=== PATIENT | female | born 1955 | race Caucasian/White ===

== ENCOUNTER 2018-07-28 06:53 | Outpatient (CLI) | payer BC ==
--- NOTE | 2018-07-28 07:39 | ULT ---
Sonogram abdomen complete HISTORY: Abdominal pain. FINDINGS: Gallbladder has a normal appearance. Common duct is 0.5 cm. Liver unremarkable without foca l mass or intrahepatic biliary dilatation. Echogenic focus at the superior pole right kidney is favored to represent an arcuate artery. No hydronephrosis. The spleen, left kidney, and visualized po rtions of the IVC and pancreas have a normal appearance. Calcifications of are apparent within the aorta. IMPRESSION: Atherosclerosis. No significant abnormalities otherwise demonstrated.
== END 2018-07-28 06:54 | disposition home or self-care (01) ==
LOC: BICULT 06:53
PROVIDERS: ATTEND Internal Medicine Gastroenterology
DX: R10.13 Epigastric pain (principal); I70.0 Atherosclerosis of aorta
CPT/HCPCS: 76700

== ENCOUNTER 2018-08-03 15:12 | Outpatient (CLI) | payer BC | END 2018-08-03 15:13 | disposition home or self-care (01) | LOC: CTENTCT 15:12 | PROVIDERS: ATTEND Otolaryngology Plastic Surgery within the Head & Neck | DX: J32.9 Chronic sinusitis, unspecified (principal) | CPT/HCPCS: 70486 ==

== ENCOUNTER → 2018-09-07 | Day surgery (SDC) | payer BC | LOC: SDC/OP 07:20 | PROVIDERS: ATTEND Surgery | DX: K21.9 Gastro-esophageal reflux disease without esophagitis (principal); K44.9 Diaphragmatic hernia without obstruction or gangrene; Z79.899 Other long term (current) drug therapy | CPT/HCPCS: 91010 ==

== ENCOUNTER 2018-10-25 12:45 | Outpatient (CLI) | payer BC ==
[2018-10-25 14:04] LABS: #Eosinphils 0.1 thou/uL (0.0-0.7); #Lymphocytes 2.2 thou/uL (1.20-3.40); #Monocytes 0.4 thou/uL (0.11-0.59); #Neutrophils 3.5 thou/uL (1.40-6.50); %Basophils 0.5 % (0.0-1.0); %Eosinophils 2.1 % (0.0-10.0); %Lymphocytes 35.1 % (21.0-51.0); %Monocytes 6.3 % (0.0-10.0); Hemoglobin 14.3 g/dL (12.0-16.0); Mean Corpuscular Hemoglobin 30.5 pg (27.0-31.0); Mean Corpuscular Volume 92.3 fL (78.0-98.0); Mean Platelet Volume 7.3 fL (7.4-10.4); Platelet Count 292 thou/uL (130-400); RBC Distribution Width 12.1 % (11.5-14.5); White Blood Cell (WBC) Count 6.3 thou/uL (4.8-10.8)
[2018-10-25 14:24] LABS: ALT (SGPT) 60 U/L (8-55); AST (SGOT) 43 U/L (5-34); Albumin 4.4 g/dL (3.4-4.8); Alkaline Phosphatase 81 U/L (40-150); Anion Gap 14 mmol/L (10-20); BUN (Urea Nitrogen) 16 mg/dL (9.8-20.1); Bilirubin, Total 0.5 mg/dL (0.2-1.2); Calc. Creatinine Clearance 0 mL/min (70-130); Calcium 9.9 mg/dL (7.8-10.44); Carbon Dioxide 25 mmol/L (23-31); Chloride 102 mmol/L (98-107); Estimated GFR-MDRD 63; Glucose 103 mg/dL (80-115); Potassium 4.3 mmol/L (3.5-5.1); Protein, Total 7.4 g/dL (6.0-8.3); Sodium 137 mmol/L (136-145)
== END 2018-10-25 12:46 | disposition home or self-care (01) ==
LOC: LABBT 12:45
PROVIDERS: ATTEND Surgery
DX: Z01.818 Encounter for other preprocedural examination (principal); K44.9 Diaphragmatic hernia without obstruction or gangrene; K21.9 Gastro-esophageal reflux disease without esophagitis
CPT/HCPCS: 80053; 85025; 93005; 93010

== ENCOUNTER 2018-10-28 05:50 | Inpatient (IN) | payer BC ==
[2018-10-28] MEDS ORDERED: ceFAZolin Sodium (SDC) 2 GM/100 ML BAG ONE (06:08)
[2018-10-28] MEDS ORDERED: Fentanyl 100 MCG/2 ML VIAL ONE ×2 (07:00)
[2018-10-28] MEDS ORDERED: Midazolam HCl 2 mg/2 ml Vial ONE (07:00)
[2018-10-28] MEDS ORDERED: Bupivacaine/Epinephrine 0.25% 30 ML VIAL ONE (07:03)
[2018-10-28] MEDS ORDERED: Hydrocodone-Acetamin 15 ML UDCUP PO PRN (09:01)
[2018-10-28] MEDS ORDERED: Morphine 4 MG/ML VIAL SLOW IVP PRN (09:01)
[2018-10-28] MEDS ORDERED: Dextrose 50% Abboject 50 ML SYRINGE SLOW IVP PRN (09:01)
[2018-10-28] MEDS ORDERED: Dextrose 5% in Water 1,000 ML IV PRN (09:01)
[2018-10-28] MEDS ORDERED: D5 1/2 NS w/20 mEq KCL 1,000 ML ONE (09:24)
[2018-10-28] MEDS ORDERED: Promethazine HCl 25 MG/ML VIAL IM PRN (09:45)
[2018-10-28] MEDS ORDERED: Promethazine HCl 25 MG/ML VIAL SLOW IVP PRN (09:45)
[2018-10-28] MEDS ORDERED: Ondansetron HCl/PF 4 MG/2 ML Vial IVP PRN (09:45)
[2018-10-28] MEDS ORDERED: Sodium Chloride 0.9% (PF) 10 ML VIAL FS PRN (09:51)
--- NOTE | 2018-10-28 10:12 | OP ---
DATE OF PROCEDURE: 10/28/2018 PREOPERATIVE DIAGNOSIS: Hiatal hernia with gastroesophageal reflux. PROCEDURE PERFORMED: Laparoscopic Charles fundoplication with esophagogastroduodenoscopy. INDICATIONS: This is a 63-year-old female with severe gastroesophageal reflux and hiatal hernia, who has developed distal esophagitis, not responding to proton pump inhibitors. FINDINGS: Moderate-size hiatal hernia. DESCRIPTION OF PROCEDURE: After informed consent was obtained, the patient was taken to the operating room and given general endotracheal anesthesia. She was placed in the supine position. Abdomen was prepped and draped in usual fashion. Local anesthesia infiltrated subcutaneously and deep. A 5-mm incision was performed approximately 8 inches above the xiphoid slightly to the left. Veress needle inserted, drop test performed. Pneumoperitoneum was created to a volume of 2 L of carbon dioxide. Utilizing a bladeless 5-mm trocar and 0-degree laparoscope, direct visual entry in abdominal cavity was performed. Pneumoperitoneum was then created to a pressure of 15 mmHg and the patient placed in steep reverse Trendelenburg position. Lico liver retractor inserted. The left lobe of liver retracted superiorly. The pylorus identified. A 5-mm port was placed just to the left of the falciform. An 8-mm port placed in upper left subcostal, and another 5-mm port placed more lateral left side. The gastrophrenic ligament was divided utilizing the LigaSure. The peritoneum was divided sharply with the LigaSure along the anterior crura and down upon the left crura and then developed along the right crura. Then, the short gastrics were taken down utilizing the LigaSure. The esophagus was reduced and held in place with a [place] drain to further define the hiatus. A 40-Haitian bougie was inserted and a posterior crural plication performed with interrupted 0 Ethibond in the Sew-Right and Ti-Knot device. Then, the fundus was grasped and brought to the right side of the esophagus and the fundoplication was performed between the left fundus, esophagus, and right fundus, utilizing interrupted 2-0 silk sutures tied intracorporeally. This was also done over the bougie. Then, intraoperative endoscopy was performed, the bougie removed. The video endoscope was inserted under direct vision and advanced into the stomach. The pylorus identified. The stomach insufflated with air. There was quite a bit of residual, kind of clear fluid in her stomach that had to be aspirated. The scope was retroflexed. The wrap looked good. No torsion. The stomach decompressed, the scope removed. At this point, the body of the stomach was tethered to the anterior abdominal wall with a 2-0 silk suture to maintain reduction of the hiatal hernia, and then Tisseel tissue sealant was applied circumferentially around the hiatal opening. The trocars and retractors were removed. Hemostasis assured and the skin closed with interrupted 4-0 Rapide. Dermabond applied. The patient tolerated the procedure well, transferred to Recovery in good condition. Sponge and needle count verified correct x2. Job ID: [id number]
[2018-10-28] MEDS ORDERED: Pantoprazole 40 MG VIAL IVP SCH (10:15)
[2018-10-28] MEDS: D5 1/2 NS w/20 mEq KCL 1,000 ML IV SCH ×3 (10:16→20:23)
[2018-10-28] MEDS: Morphine 2 MG/ML SYRINGE SLOW IVP PRN ×2 (10:33→20:23)
[2018-10-28] MEDS ORDERED: Rocuronium Bromide 10 MG/ML (10ML VIAL) ONE (12:06)
[2018-10-28] MEDS ORDERED: Ketorolac Tromethamine 30 MG/ML VIAL ONE (12:06)
[2018-10-28] MEDS ORDERED: Lidocaine 1% PF 5 ML VIAL ONE (12:06)
[2018-10-28] MEDS ORDERED: ePHEDrine 50 MG/ML VIAL ONE (12:06)
[2018-10-28] MEDS ORDERED: PROPOFOL 200 MG/20 ML VIAL ONE (12:06)
[2018-10-28] MEDS ORDERED: Glycopyrrolate 0.2 MG/ML 5 ML SYRINGE ONE (12:06)
[2018-10-28] MEDS ORDERED: Ondansetron PF 4 MG/2 ML Vial ONE (12:06)
--- NOTE | 2018-10-28 12:10 | HP ---
CHIEF COMPLAINT: Hiatal hernia with reflux. HISTORY OF PRESENT ILLNESS: This is a 63-year-old female with a 20 plus year history of reflux, progressive despite PPIs and Carafate. EGD shows distal esophagitis. She sleeps in a recliner, solid food dysphagia, required dilatation. Ultrasound of the gallbladder normal. Her manometry was normal. PAST MEDICAL HISTORY: She has had bone spurs. PAST SURGICAL HISTORY: Hysterectomy for endometriosis. She has had an endoscopic sinus surgeries, septoplasty. MEDICATIONS: EpiPen. FAMILY HISTORY: Father of unknown reasons. Mother is alive with hypertension. SOCIAL HISTORY: She is single. No tobacco. Rare alcohol. ALLERGIES: NO KNOWN DRUG ALLERGIES. PHYSICAL EXAMINATION: VITAL SIGNS: Height 64, weight 139, and body mass index 24. GENERAL: Well-developed, well-nourished female, in no apparent distress. HEENT: No jaundice. LUNGS: Clear. HEART: Regular rate and rhythm. ABDOMEN: Soft and nontender. Good bowel sounds. No masses or hernias. EXTREMITIES: Good pulses. No pedal edema. ASSESSMENT: Hiatal hernia with reflux. PLAN: Laparoscopic hiatal hernia repair with Charles fundoplication and EGD. CONSENT: I have discussed the planned procedure as well as risk of bleeding, infection, injury to esophagus, spleen, loops of bowel, and need to open, she understands and gives informed consent. Job ID: [id number]
[2018-10-28] MEDS: Promethazine HCl 25 MG/ML VIAL IM PRN (13:17)
[2018-10-28] MEDS ORDERED: CEFAZOLIN 2 GM in Premix Bag 1 BAG IVPB SCH (16:00)
[2018-10-28] MEDS: Ketorolac Tromethamine 30 MG/ML VIAL IVP SCH ×2 (17:02→20:24)
[2018-10-28] MEDS: CEFAZOLIN 2 GM in Sodium Chloride 0.9% 100 ML IVPB SCH (19:31)
[2018-10-28] MEDS: Ondansetron PF 4 MG/2 ML Vial IVP PRN (20:24)
[2018-10-28] MEDS: hydrALAZINE 20 MG/ML VIAL SLOW IVP PRN (23:46)
[2018-10-28] MEDS ORDERED: CEFAZOLIN 2 GM in Sodium Chloride 0.9% 100 ML IVPB SCH (23:59)
[2018-10-29] MEDS: CEFAZOLIN 2 GM in Sodium Chloride 0.9% 100 ML IVPB SCH (02:16)
[2018-10-29] MEDS: Ondansetron PF 4 MG/2 ML Vial IVP PRN ×3 (02:16→23:45)
[2018-10-29] MEDS: Ketorolac Tromethamine 30 MG/ML VIAL IVP SCH ×4 (02:16→20:09)
[2018-10-29] MEDS: Morphine 2 MG/ML SYRINGE SLOW IVP PRN ×2 (03:10→23:45)
[2018-10-29] MEDS ORDERED: Enoxaparin Sodium 40 MG/0.4 ML SYRINGE SC SCH (06:00)
[2018-10-29 06:02] LABS: #Lymphocytes 0.9 thou/uL (1.20-3.40); #Monocytes 0.3 thou/uL (0.11-0.59); #Neutrophils 8.2 thou/uL (1.40-6.50); %Basophils 0.5 % (0.0-1.0); %Eosinophils 0.2 % (0.0-10.0); %Lymphocytes 9.3 % (21.0-51.0); %Monocytes 2.9 % (0.0-10.0); %Neutrophils 87.1 % (42.0-75.0); Hemoglobin 14.1 g/dL (12.0-16.0); Mean Corpuscular HGB CONC 34.2 g/dL (32.0-36.0); Mean Corpuscular Hemoglobin 30.6 pg (27.0-31.0); Mean Corpuscular Volume 89.6 fL (78.0-98.0); Mean Platelet Volume 7.1 fL (7.4-10.4); Platelet Count 279 thou/uL (130-400); RBC Distribution Width 11.9 % (11.5-14.5); Red Blood Cell (RBC) Count 4.62 mill/uL (4.20-5.40); White Blood Cell (WBC) Count 9.4 thou/uL (4.8-10.8)
[2018-10-29] MEDS: Promethazine HCl 25 MG/ML VIAL IM PRN ×4 (06:03→22:39)
[2018-10-29 06:22] LABS: Anion Gap 12 mmol/L (10-20); BUN (Urea Nitrogen) 7 mg/dL (9.8-20.1); Calc. Creatinine Clearance 66 mL/min (70-130); Calcium 9.2 mg/dL (7.8-10.44); Carbon Dioxide 26 mmol/L (23-31); Chloride 94 mmol/L (98-107); Estimated GFR-MDRD 69; Glucose 189 mg/dL (80-115); Potassium 3.5 mmol/L (3.5-5.1); Sodium 128 mmol/L (136-145)
--- NOTE | 2018-10-29 09:12 | RAD ---
XR UGI Single Contrast No Air HISTORY: Recent hiatal hernia repair surgery Procedure: Single sip swallow study was performed with administration of 15 mL contrast under fluoros copy. FINDINGS: Contrast slowly traverses the gastroesophageal junction. No leak or evidence of high-grade obstructi on. There is a thin stream of contrast passing through the esophagus into the stomach likely due to edema at the surgical site. IMPRESSION: Findings are suggestive of partial obstruction likely due to postoperative edema. Discussed over the telephone with Dr. Goddard at 8:58 AM.
[2018-10-29] MEDS: D5 1/2 NS w/20 mEq KCL 1,000 ML IV SCH (09:56)
[2018-10-29] MEDS: Pantoprazole 40 MG VIAL IVP SCH (09:59)
[2018-10-29] MEDS: diphenhydrAMINE 50 MG/ML VIAL IVP PRN (10:07)
[2018-10-29] MEDS ORDERED: GASTROGRAFIN 30 ML BOT ONE (11:52)
--- NOTE | 2018-10-29 12:09 | PRG ---
DATE OF SERVICE: 10/29/2018 SUBJECTIVE: The patient had a lot of dry heaves, feeling nauseated, not having ability to take much p.o. Pain is okay. OBJECTIVE: VITAL SIGNS: Her temperature 97.8, pulse 76, and blood pressure 160/89. GENERAL: She is awake and alert. ABDOMEN: The incisions are healing well. There is no evidence of infection. LABORATORY DATA: White count is 9.4, hemoglobin and hematocrit of 14 and 41, and platelet count 279. Electrolytes are fine. Her swallow study showed a lot of edema at the EG junction. There was a thin stream of contrast that went into the stomach. No leak. ASSESSMENT: Postoperative edema, status post Charles fundoplication. PLAN: Continue IV fluids, minimal p.o. As swelling goes down and she is able to take more p.o., she will be able to be discharged. Job ID: [id number]
[2018-10-29] MEDS: Sodium Chloride 0.9% 1,000 ML IV SCH ×2 (15:06→20:08)
[2018-10-29] MEDS: hydrALAZINE 20 MG/ML VIAL SLOW IVP PRN (17:41)
[2018-10-30] MEDS ORDERED: Fluticasone Propionate Nasal Spray 16 gm Bottle NASAL SCH (00:45)
[2018-10-30] MEDS: Ketorolac Tromethamine 30 MG/ML VIAL IVP SCH ×4 (03:50→20:40)
[2018-10-30 07:31] LABS: Anion Gap 11 mmol/L (10-20); BUN (Urea Nitrogen) 8 mg/dL (9.8-20.1); Calc. Creatinine Clearance 71 mL/min (70-130); Calcium 9.5 mg/dL (7.8-10.44); Carbon Dioxide 25 mmol/L (23-31); Chloride 96 mmol/L (98-107); Estimated GFR-MDRD 75; Glucose 89 mg/dL (80-115); Magnesium 1.7 mg/dL (1.6-2.6); Potassium 3.1 mmol/L (3.5-5.1); Sodium 129 mmol/L (136-145)
[2018-10-30] MEDS: Enoxaparin Sodium 40 MG/0.4 ML SYRINGE SC SCH (10:55)
[2018-10-30] MEDS: Pantoprazole 40 MG VIAL IVP SCH (10:56)
[2018-10-30] MEDS: Fluticasone Propionate Nasal Spray 16 gm Bottle NASAL SCH (11:03)
[2018-10-30] MEDS: Ondansetron PF 4 MG/2 ML Vial IVP PRN (15:01)
[2018-10-30] MEDS: Sodium Chloride 0.9% 1,000 ML IV SCH (15:11)
--- NOTE | 2018-10-30 16:06 | PRG ---
DATE OF SERVICE: 10/30/2018 SUBJECTIVE: Ms. Ann is a 63-year-old woman, who is postoperative day #2, status post laparoscopic Charles fundoplication. The patient is currently unable to take in even liquids due to dysphagia. Upper GI, which was performed yesterday revealed likely edema in the operative site. The patient is therefore on bowel rest. She reports feeling quite weak due to not having had enough calories over the last few days. She however, reports adequate pain control. Urinary output has been adequate. PHYSICAL EXAMINATION: VITAL SIGNS: Include blood pressure 148/83, pulse 72, respiratory rate is 15, temperature 98.2 degrees Fahrenheit, and oxygen saturation 98% on room air. HEART: Reveals regular rate and rhythm. LUNGS: Clear to auscultation bilaterally. Breathing, regular and nonlabored. ABDOMEN: Soft, nontender, and nondistended. EXTREMITIES: Reveal 2+ radial and pedal pulses bilaterally. No ankle edema is present. NEUROLOGIC: Reveals no focal deficits present. LABORATORY DATA: Laboratory findings includes metabolic profile; sodium 129, potassium 3.1, chloride is 96, bicarb is 25, BUN is 8, creatinine 0.77, glucose is 89, and magnesium 1.7. IMPRESSION: 1. Postoperative day#2 status post laparoscopic Charles fundoplication. 2. Acute hyponatremia. 3. Acute hypokalemia. 4. Acute hypomagnesemia. PLAN: 1. Continue bowel rest. We will initiate peripheral parenteral nutrition until return of ability to swallow, which I suspect will happen in a couple of days. 2. Increase activity. Above findings and plan have been discussed with the patient, who indicates understanding of information given. I have answered her questions. Job ID: [id number]
[2018-10-30] MEDS: D5W-AA 4.25% with LYTES 1,000 ML IV SCH (17:24)
[2018-10-30] MEDS: Promethazine HCl 25 MG/ML VIAL IM PRN (22:04)
--- NOTE | 2018-10-31 01:47 | PRG ---
DATE OF SERVICE: 10/31/2018 SUBJECTIVE: The patient remains on the surgical floor. She is postop day #2, status post laparoscopic Charles fundoplication. She is currently on full bowel rest due to her dysphagia and some edema noted on her upper GI. Otherwise, the patient states that her pain is controlled. She is passing gas, and she is ambulating without difficulty. As a matter of fact, the patient pointed out that she has made 24 laps around the [place] today. PHYSICAL EXAMINATION: VITAL SIGNS: Stable. The patient is afebrile. GENERAL: The patient is resting comfortably in bed. She is in no discomfort. ABDOMEN: Soft, nondistended with hypoactive bowel sounds. ASSESSMENT: Status post laparoscopic Charles fundoplication, postop day 2. PLAN: Plan will be to continue bowel rest. The Day Team has started her on peripheral parenteral nutrition. Otherwise, we will continue all her supportive care and await for her ability to take p.o. Job ID: [id number]
[2018-10-31] MEDS: Ketorolac Tromethamine 30 MG/ML VIAL IVP SCH ×4 (02:38→20:15)
[2018-10-31] MEDS: D5W-AA 4.25% with LYTES 1,000 ML IV SCH ×3 (02:44→20:11)
[2018-10-31] MEDS: Sodium Chloride 0.9% 1,000 ML IV SCH ×4 (02:44→20:11)
[2018-10-31] MEDS: Morphine 2 MG/ML SYRINGE SLOW IVP PRN (03:02)
[2018-10-31 07:25] LABS: Anion Gap 11 mmol/L (10-20); BUN (Urea Nitrogen) 18 mg/dL (9.8-20.1); Calc. Creatinine Clearance 65 mL/min (70-130); Calcium 9.2 mg/dL (7.8-10.44); Carbon Dioxide 25 mmol/L (23-31); Chloride 103 mmol/L (98-107); Estimated GFR-MDRD 67; Glucose 85 mg/dL (80-115); Potassium 3.2 mmol/L (3.5-5.1); Sodium 136 mmol/L (136-145)
[2018-10-31] MEDS: Fluticasone Propionate Nasal Spray 16 gm Bottle NASAL SCH (09:44)
[2018-10-31] MEDS: Enoxaparin Sodium 40 MG/0.4 ML SYRINGE SC SCH (09:45)
[2018-10-31] MEDS: Pantoprazole 40 MG VIAL IVP SCH (09:47)
--- NOTE | 2018-10-31 18:11 | PRG ---
DATE OF SERVICE: 10/31/2018 SUBJECTIVE: Ms. Ann is a 63-year-old woman, who is postoperative day #3 status post laparoscopic Charles fundoplication. She still complains of dysphagia even to liquids. She is also complaining of intermittent painful swallowing of on spit. She has no fevers or chills. She has no dyspnea or syncope. The patient ambulates briskly and very frequently. She has been tolerating peripheral parenteral nutritional supplementation. Urinary output is adequate. OBJECTIVE: VITAL SIGNS: Includes blood pressure 142/87, pulse 74, respiratory rate is 15, temperature is 97.8 degrees Fahrenheit, and oxygen saturation 97% on room air. HEART: Reveals regular rate and rhythm. No murmurs or gallops auscultated. LUNGS: Clear to auscultation bilaterally. Her breathing is regular and unlabored. ABDOMEN: Soft, nontender, and nondistended. NEUROLOGIC: Reveals no focal deficits present. IMPRESSION AND PLAN: Postoperative day #3 status post laparoscopic Charles fundoplication. We will continue bowel rest and parenteral nutritional supplementation. The patient will be re-evaluated tomorrow by her operating surgeon, Dr. Goddard. Otherwise, there is no acute surgical indication at this time. Job ID: [id number]
[2018-10-31] MEDS: Ondansetron PF 4 MG/2 ML Vial IVP PRN (23:58)
--- NOTE | 2018-11-01 02:28 | PRG ---
DATE OF SERVICE: 11/01/2018 SUBJECTIVE: The patient remains on the surgical floor. She is postop day #3, status post laparoscopic Charles fundoplication. She has remained n.p.o. after her procedure due to some significant dysphagia and nausea. The patient is currently on PPN. Her pain is controlled. She has not had a bowel movement yet. She is ambulating quite frequently as she was last night. PHYSICAL EXAMINATION: VITAL SIGNS: Stable. The patient is afebrile. GENERAL: The patient is resting comfortably. She was asleep at the time of my exam, I did not awaken her. The nurses reported no issues. ASSESSMENT AND PLAN: Status post laparoscopic Charles fundoplication, postop day #3. Plan will be to continue her peripheral parental nutrition. We will encourage her to continue ambulating and we will wait for the inflammation to resolve. She may begin p.o.'s. Job ID: [id number]
[2018-11-01] MEDS: Ketorolac Tromethamine 30 MG/ML VIAL IVP SCH ×4 (02:52→20:38)
[2018-11-01] MEDS: D5W-AA 4.25% with LYTES 1,000 ML IV SCH ×3 (03:49→21:20)
[2018-11-01] MEDS: Sodium Chloride 0.9% 1,000 ML IV SCH ×3 (04:07→20:36)
[2018-11-01 06:51] LABS: Anion Gap 9 mmol/L (10-20); BUN (Urea Nitrogen) 21 mg/dL (9.8-20.1); Calc. Creatinine Clearance 0 mL/min (70-130); Calcium 9.3 mg/dL (7.8-10.44); Carbon Dioxide 27 mmol/L (23-31); Chloride 105 mmol/L (98-107); Estimated GFR-MDRD 70; Glucose 113 mg/dL (80-115); Magnesium 1.9 mg/dL (1.6-2.6); Phosphorus 3.5 mg/dL (2.3-4.7); Potassium 3.2 mmol/L (3.5-5.1); Sodium 138 mmol/L (136-145)
[2018-11-01] MEDS ORDERED: Metoclopramide HCl 10 MG/2 ML VIAL IVP SCH (07:30)
[2018-11-01] MEDS: Fluticasone Propionate Nasal Spray 16 gm Bottle NASAL SCH (08:26)
[2018-11-01] MEDS: Pantoprazole 40 MG VIAL IVP SCH (08:27)
[2018-11-01] MEDS: Enoxaparin Sodium 40 MG/0.4 ML SYRINGE SC SCH (08:40)
[2018-11-01 13:40] VITALS: BMI 22.6
--- NOTE | 2018-11-01 15:43 | PRG ---
DATE OF SERVICE: 11/01/2018 SUBJECTIVE: The patient is feeling better. She is having less nausea and vomiting. She is slowly able to tolerate more p.o., but not enough yet to go home. PHYSICAL EXAMINATION: VITAL SIGNS: Temperature 97.9, pulse 73, and blood pressure 137/78. GENERAL: She is awake, alert, does not appear to be in any distress. ASSESSMENT: Postoperative edema. PLAN: Trial of Regleticia. Job ID: [id number]
[2018-11-01] MEDS: Metoclopramide HCl 10 MG/2 ML VIAL IVP SCH ×2 (16:28→20:38)
[2018-11-01] MEDS: Ondansetron PF 4 MG/2 ML Vial IVP PRN (17:41)
[2018-11-01] MEDS: hydrALAZINE 20 MG/ML VIAL SLOW IVP PRN (20:51)
[2018-11-01] MEDS: diphenhydrAMINE 50 MG/ML VIAL IVP PRN (21:46)
[2018-11-02] MEDS: Ketorolac Tromethamine 30 MG/ML VIAL IVP SCH ×2 (03:13→09:36)
[2018-11-02] MEDS: D5W-AA 4.25% with LYTES 1,000 ML IV SCH ×2 (03:14→12:09)
[2018-11-02] MEDS: Sodium Chloride 0.9% 1,000 ML IV SCH ×2 (03:15→12:09)
[2018-11-02] MEDS: Metoclopramide HCl 10 MG/2 ML VIAL IVP SCH (09:35)
[2018-11-02] MEDS: Fluticasone Propionate Nasal Spray 16 gm Bottle NASAL SCH (09:36)
[2018-11-02] MEDS: Enoxaparin Sodium 40 MG/0.4 ML SYRINGE SC SCH (09:36)
[2018-11-02] MEDS: Pantoprazole 40 MG VIAL IVP SCH (09:45)
[2018-11-02 12:08] VITALS: BP 181/99; TEMP 99.2
--- NOTE | 2018-11-02 15:49 | DIS ---
DATE OF ADMISSION: 10/28/2018 DATE OF DISCHARGE: 11/02/2018 DISCHARGE DIAGNOSES: Hiatal hernia with gastroesophageal reflux, postoperative dysphagia. HOSPITAL COURSE: The patient was admitted, taken to the operating room, where she underwent a laparoscopic repair of hiatal hernia and Charles. Postoperatively, she had quite a bit of postoperative edema. She had a swallow study, did show a going through, but it was just a small amount, required a few days for that to improve. We added Reglan, it really helped a lot. Now she is tolerating liquids well. Bowels are functioning. Pain is controlled. She is discharged home on hydrocodone, Zofran, and Reglan. She will follow up with me in 2 weeks. Job ID: [id number]
== END 2018-11-02 13:47 | disposition home or self-care (01) | DRG 327 ==
LOC: SDC 05:50 → SJJU 09:01
PROVIDERS: ADMIT Surgery; ATTEND Surgery
PROC: 0DV44ZZ Restriction of Esophagogastric Junction, Percutaneous Endoscopic Approach (ICD-10-PCS; principal; 2018-10-28)
PROC: 0BQT4ZZ Repair Diaphragm, Percutaneous Endoscopic Approach (ICD-10-PCS; 2018-10-28)
DX: K21.9 Gastro-esophageal reflux disease without esophagitis (principal); E87.1 Hypo-osmolality and hyponatremia; K44.9 Diaphragmatic hernia without obstruction or gangrene; K21.0 Gastro-esophageal reflux disease with esophagitis; E87.6 Hypokalemia; E83.42 Hypomagnesemia; R13.19 Other dysphagia; R60.9 Edema, unspecified
CPT/HCPCS: 36415; 74241; 80048; 80053; 83735; 84100; 85025; 93005; 93010; 94760; C9113; J0360; J0690; J1200; J1650; J1885; J2001; J2250; J2270; J2405; J2550; J2704; J2765; J3010; J3490; Q9963

== ENCOUNTER 2019-03-23 08:23 | Outpatient (CLI) | payer BC ==
--- NOTE | 2019-03-23 14:29 | RAD ---
BIPHASIC UPPER GI WITH SMALL BOWEL SERIES: Date: 03/23/19 HISTORY: Abdominal cramps and bloating. Patient had hiatal hernia surgery on 10/28/18. FINDINGS: Swallowing was grossly normal. There was unobstructed flow of contrast through the esophagus and into the stomach, duodenum, small bowel loops, and colon. The contrast reaches the colon by 30 minutes. T here is a diverticulum arising from the third/fourth portion of the duodenum. No persistent filling d efects are seen. No abnormal loop separation or dilatation is seen. No GE reflux demonstrated during Valsalva maneuver. Spot compression under fluoroscopy demonstrates no abnormalities. Terminal ileum appears normal. IMPRESSION: Duodenal diverticulum. POS: [facility]
== END 2019-03-23 08:24 | disposition home or self-care (01) ==
LOC: RAD 08:23
PROVIDERS: ATTEND Surgery
DX: R10.9 Unspecified abdominal pain (principal); R14.0 Abdominal distension (gaseous); K57.10 Diverticulosis of small intestine without perforation or abscess without bleeding
CPT/HCPCS: 74249

== ENCOUNTER 2019-05-31 08:02 | Outpatient (CLI) | payer BC ==
--- NOTE | 2019-05-31 08:39 | MMO ---
Bilateral MAMMO Bilat Screen [facility]IN. CLINICAL HISTORY: Patient is 64 years old and is seen for screening. The patient has the following family history of breast cancer: maternal aunt, at age 55; maternal grandmother and maternal uncle, maternal great. The patient has no personal history of cancer. VIEWS: The views performed were: bilateral craniocaudal with tomosynthesis and bilateral mediolateral oblique with tomosynthesis. FILMS COMPARED: The present examination has been compared to prior imaging studies performed at [facility] on 09/25/2009, 10/31/2010, 02/17/2012 and 07/20/2015. This study has been interpreted with the assistance of computer-aided detection. MAMMOGRAM FINDINGS: There are scattered fibroglandular densities. There are vascular calcifications seen in both breasts. There are no suspicious masses, suspicious calcifications, or new areas of architectural distortion. IMPRESSION: A ROUTINE FOLLOW-UP MAMMOGRAM IN 1 YEAR IS RECOMMENDED. THE RESULTS OF THIS EXAM WERE SENT TO THE PATIENT. ACR BI-RADS Category 2 - Benign finding MAMMOGRAPHY NOTE: 1. A negative mammogram report should not delay a biopsy if a dominant of clinically suspicious mass is present. 2. Approximately 10% to 15% of breast cancers are not detected by mammography. 3. Adenosis and dense breasts may obscure an underlying neoplasm. Reported by: RASHIDA MAGALLANES MD Electonically Signed: [id number]
== END 2019-05-31 08:03 | disposition home or self-care (01) ==
LOC: BICMAMMO 08:02
PROVIDERS: ATTEND Nurse Practitioner Family
DX: Z12.31 Encounter for screening mammogram for malignant neoplasm of breast (principal); Z80.3 Family history of malignant neoplasm of breast
CPT/HCPCS: 77063; 77067

== ENCOUNTER 2020-08-10 12:31 | Outpatient (CLI) | payer BC | END 2020-08-10 12:32 | disposition home or self-care (01) | LOC: BICMAMMO 12:31 | PROVIDERS: ATTEND Nurse Practitioner Family | DX: Z12.31 Encounter for screening mammogram for malignant neoplasm of breast (principal); Z80.3 Family history of malignant neoplasm of breast | CPT/HCPCS: 77063; 77067 ==

== ENCOUNTER 2020-08-21 07:35 | Outpatient (CLI) | payer BC | END 2020-08-21 07:36 | disposition home or self-care (01) | LOC: BICULT 07:35 | PROVIDERS: ATTEND Nurse Practitioner Family | DX: R10.84 Generalized abdominal pain (principal) | CPT/HCPCS: 76705 ==

== ENCOUNTER 2020-09-21 12:23 | Outpatient (CLI) | payer BC | END 2020-09-21 12:24 | disposition home or self-care (01) | LOC: NM 12:23 | PROVIDERS: ATTEND Physician Assistant Medical | DX: R10.13 Epigastric pain (principal); R14.0 Abdominal distension (gaseous); R13.10 Dysphagia, unspecified | CPT/HCPCS: 78227; A9537 ==

== ENCOUNTER 2020-11-26 14:55 | Outpatient (CLI) | payer BC ==
[2020-11-26] MEDS ORDERED: Iopamidol 370 76% 100 ML VIAL ONE (15:15)
== END 2020-11-26 14:56 | disposition home or self-care (01) ==
LOC: BICCT 14:55
PROVIDERS: ATTEND Surgery
DX: K44.9 Diaphragmatic hernia without obstruction or gangrene (principal); N28.9 Disorder of kidney and ureter, unspecified
CPT/HCPCS: 74160; 82565; Q9967

== ENCOUNTER 2021-03-20 15:47 | Outpatient (CLI) | payer BC ==
[2021-03-20 16:58] LABS: #Basophils 0.1 10x3/uL (0.0-0.2); #Eosinphils 0.2 10x3/uL (0.0-0.5); #Monocytes 0.4 10x3/uL (0.0-1.1); #Neutrophils 2.8 10x3/uL (1.5-8.4); %Basophils 1.3 % (0.0-2.0); %Eosinophils 2.9 % (0.0-6.0); %Lymphocytes 37.4 % (18.0-47.0); %Monocytes 7.4 % (0.0-10.0); %Neutrophils 50.8 % (40.0-75.0); Hemoglobin 13.4 g/dL (12.0-15.5); Mean Corpuscular HGB CONC 32.9 g/dL (32.0-36.0); Mean Corpuscular Hemoglobin 30.4 pg (27.0-33.0); Mean Corpuscular Volume 92.3 fl (81.6-98.3); Mean Platelet Volume 10.4 fl (7.4-10.4); Platelet Count 284 10x3/uL (150-450); Red Blood Cell (RBC) Count 4.41 10x6/uL (3.90-5.03); White Blood Cell (WBC) Count 5.5 10x3/uL (3.5-10.5)
[2021-03-20 17:22] LABS: ALT (SGPT) 27 U/L (8-55); AST (SGOT) 29 U/L (5-34); Albumin 4.2 g/dL (3.4-4.8); Alkaline Phosphatase 87 U/L (40-110); Anion Gap 13 mmol/L (10-20); BUN (Urea Nitrogen) 14 mg/dL (9.8-20.1); Bilirubin, Total 0.3 mg/dL (0.2-1.2); Calc. Creatinine Clearance 0 mL/min (70-130); Calcium 9.2 mg/dL (7.8-10.44); Carbon Dioxide 26 mmol/L (23-31); Glucose 81 mg/dL (80-115); Protein, Total 7.2 g/dL (5.8-8.1)
[2021-03-20 17:27] LABS: Chloride 104 mmol/L (98-107); Potassium 4.8 mmol/L (3.5-5.1); Sodium 138 mmol/L (136-145)
[2021-03-21 01:07] LABS: SARS-CoV-2 PCR by NAA Not Detected (NotDetected)
== END 2021-03-20 15:48 | disposition home or self-care (01) ==
LOC: LABBT 15:47
PROVIDERS: ATTEND Surgery
DX: Z01.818 Encounter for other preprocedural examination (principal); Z20.822 Contact with and (suspected) exposure to COVID-19
CPT/HCPCS: 80053; 85025; 93005; 93010; U0003; U0005

== ENCOUNTER 2021-03-25 06:28 | Inpatient (IN) | payer BC ==
[2021-03-25] MEDS ORDERED: Scopolamine 1.5 mg/72 hour Patch ONE (08:09)
[2021-03-25] MEDS ORDERED: ceFAZolin 2 GM/DEX 5% 100 ML BAG ONE (08:09)
[2021-03-25] MEDS ORDERED: Midazolam HCl 2 mg/2 ml Vial ONE (08:22)
[2021-03-25] MEDS ORDERED: HYDROmorphone 0.5 MG/0.5 ML SYRINGE ONE ×2 (08:22→11:03)
[2021-03-25] MEDS ORDERED: Fentanyl 100 MCG/2 ML VIAL ONE ×2 (08:22→10:51)
[2021-03-25] MEDS ORDERED: Lidocaine 2% Jelly 5 ML TUBE ONE (08:23)
[2021-03-25] MEDS ORDERED: Lidocaine 1% w/Epinephrine 1:100K 30 ML VIAL ONE (08:32)
[2021-03-25] MEDS ORDERED: Bupivacaine 0.25% 10 ML VIAL ONE (08:32)
[2021-03-25] MEDS ORDERED: Phenylephrine 10 MG/ML VIAL ONE (08:45)
[2021-03-25] MEDS ORDERED: Glycopyrrolate 0.2 MG/ML 5 ML SYRINGE ONE (08:45)
[2021-03-25] MEDS ORDERED: PROPOFOL 200 MG/20 ML VIAL ONE (08:45)
[2021-03-25] MEDS ORDERED: Lidocaine 1% PF 5 ML VIAL ONE (08:45)
[2021-03-25] MEDS ORDERED: Rocuronium Bromide 10 MG/ML (10ML VIAL) ONE (08:45)
[2021-03-25] MEDS ORDERED: ePHEDrine 50 MG/ML VIAL ONE (08:45)
[2021-03-25] MEDS ORDERED: HYDROmorphone 2 MG/ML VIAL SLOW IVP PRN (09:24)
[2021-03-25] MEDS ORDERED: Promethazine HCl 25 MG/ML VIAL IVPB PRN (09:24)
[2021-03-25] MEDS ORDERED: Ondansetron HCl/PF 4 MG/2 ML Vial IVP PRN (09:24)
[2021-03-25] MEDS ORDERED: Promethazine HCl 25 MG/ML VIAL IM PRN ×2 (09:24→10:37)
[2021-03-25] MEDS ORDERED: Dextrose 50% Abboject 50 ML SYRINGE SLOW IVP PRN (10:37)
[2021-03-25] MEDS ORDERED: hydrALAZINE 20 MG/ML VIAL SLOW IVP PRN ×2 (10:37→13:16)
[2021-03-25] MEDS ORDERED: Ondansetron PF 4 MG/2 ML Vial IVP PRN (10:37)
[2021-03-25] MEDS ORDERED: Morphine 4 MG/ML VIAL SLOW IVP PRN ×2 (10:37)
[2021-03-25] MEDS ORDERED: diphenhydrAMINE 50 MG/ML VIAL IVP PRN (10:37)
[2021-03-25] MEDS ORDERED: Dextrose 5% in Water 1,000 ML IV PRN (10:37)
[2021-03-25] MEDS ORDERED: Hydrocortisone Sod Succ/PF 250 mg/2 ml Vial ONE (11:03)
[2021-03-25] MEDS: D5 1/2 NS w/20 mEq KCL 1,000 ML IV SCH ×3 (12:24→23:39)
[2021-03-25] MEDS ORDERED: FLU VACC QS2021-22(65YR UP)/PF 240 MCG/0.7 ML SYRINGE IM ONE (13:30)
[2021-03-25] MEDS: Hydrocodone-Acetamin 15 ML UDCUP PO PRN ×2 (14:56→18:55)
[2021-03-25] MEDS ORDERED: ceFAZolin Sodium/D5W 2 GM in Premix Bag 1 BAG IVPB SCH (16:00)
[2021-03-25] MEDS: CEFAZOLIN 2 GM in Premix Bag 1 BAG IVPB SCH (17:56)
[2021-03-25] MEDS: Ondansetron PF 4 MG/2 ML Vial IVP PRN (18:39)
[2021-03-25] MEDS: Promethazine HCl 12.5 MG in Sodium Chloride 0.9% 50 ML IVPB PRN (20:12)
[2021-03-26] MEDS: Hydrocodone-Acetamin 15 ML UDCUP PO PRN ×4 (01:23→23:52)
[2021-03-26] MEDS: CEFAZOLIN 2 GM in Premix Bag 1 BAG IVPB SCH (01:25)
[2021-03-26 05:41] LABS: #Lymphocytes 1.5 thou/uL (1.20-3.40); #Monocytes 0.6 thou/uL (0.11-0.59); #Neutrophils 6.1 thou/uL (1.40-6.50); %Basophils 0.4 % (0.0-1.0); %Eosinophils 0.2 % (0.0-10.0); %Lymphocytes 17.8 % (21.0-51.0); %Monocytes 7.1 % (0.0-10.0); %Neutrophils 74.5 % (42.0-75.0); Hemoglobin 13.4 g/dL (12.0-16.0); Mean Corpuscular HGB CONC 33.9 g/dL (32.0-36.0); Mean Corpuscular Volume 94.6 fL (78.0-98.0); Mean Platelet Volume 7.8 fL (7.4-10.4); Platelet Count 253 thou/uL (130-400); Red Blood Cell (RBC) Count 4.17 mill/uL (4.20-5.40); White Blood Cell (WBC) Count 8.2 thou/uL (4.8-10.8)
[2021-03-26 05:52] LABS: Anion Gap 12 mmol/L (10-20); BUN (Urea Nitrogen) 10 mg/dL (9.8-20.1); Calc. Creatinine Clearance 52 mL/min (70-130); Calcium 9.3 mg/dL (7.8-10.44); Carbon Dioxide 27 mmol/L (23-31); Chloride 100 mmol/L (98-107); Glucose 119 mg/dL (80-115); Potassium 4.4 mmol/L (3.5-5.1); Sodium 135 mmol/L (136-145)
[2021-03-26] MEDS: D5 1/2 NS w/20 mEq KCL 1,000 ML IV SCH ×2 (08:48→16:22)
[2021-03-26] MEDS: Enoxaparin Sodium 40 MG/0.4 ML SYRINGE SC SCH (08:48)
[2021-03-26] MEDS: Pantoprazole 40 MG VIAL IVP SCH (08:48)
[2021-03-26] MEDS: Ondansetron PF 4 MG/2 ML Vial IVP PRN (08:58)
[2021-03-26] MEDS: Promethazine HCl 12.5 MG in Sodium Chloride 0.9% 50 ML IVPB PRN (12:13)
[2021-03-27] MEDS: Promethazine HCl 12.5 MG in Sodium Chloride 0.9% 50 ML IVPB PRN ×3 (00:38→21:06)
[2021-03-27] MEDS: D5 1/2 NS w/20 mEq KCL 1,000 ML IV SCH ×3 (06:42→22:50)
[2021-03-27] MEDS: Enoxaparin Sodium 40 MG/0.4 ML SYRINGE SC SCH (08:07)
[2021-03-27] MEDS: Pantoprazole 40 MG VIAL IVP SCH (08:07)
[2021-03-27] MEDS: Hydrocodone-Acetamin 15 ML UDCUP PO PRN (15:54)
[2021-03-27] MEDS: Metoclopramide HCl 10 MG/2 ML VIAL IVP SCH (22:50)
[2021-03-28] MEDS: Metoclopramide HCl 10 MG/2 ML VIAL IVP SCH ×2 (05:40→14:38)
[2021-03-28] MEDS: Hydrocodone-Acetamin 15 ML UDCUP PO PRN ×3 (05:43→15:24)
[2021-03-28] MEDS: Pantoprazole 40 MG VIAL IVP SCH (09:24)
[2021-03-28] MEDS: Enoxaparin Sodium 40 MG/0.4 ML SYRINGE SC SCH (09:24)
[2021-03-28] MEDS: Ondansetron PF 4 MG/2 ML Vial IVP PRN (10:53)
[2021-03-28 14:17] VITALS: BP 140/80; TEMP 97.8
== END 2021-03-28 15:30 | disposition home or self-care (01) | DRG 328 ==
LOC: SDC 06:28 → SURG A 10:37
PROVIDERS: ADMIT Surgery; ATTEND Surgery
PROC: 0BUT4JZ Supplement Diaphragm with Synthetic Substitute, Percutaneous Endoscopic Approach (ICD-10-PCS; principal; 2021-03-25)
PROC: 0DJ08ZZ Inspection of Upper Intestinal Tract, Via Natural or Artificial Opening Endoscopic (ICD-10-PCS; 2021-03-25)
DX: K44.9 Diaphragmatic hernia without obstruction or gangrene (principal); G43.909 Migraine, unspecified, not intractable, without status migrainosus; R13.10 Dysphagia, unspecified; Z90.710 Acquired absence of both cervix and uterus; Z79.899 Other long term (current) drug therapy; Z82.49 Family history of ischemic heart disease and other diseases of the circulatory system
CPT/HCPCS: 36415; 80048; 85025; 94760; C2613; C9113; J0690; J1170; J1650; J1720; J2250; J2270; J2370; J2405; J2550; J2704; J2765; J3010; J3480; J3490; Q4130; S0020

== ENCOUNTER 2021-04-15 10:57 | Emergency (ER) | payer BC ==
[~2021-04-15 10:57] MED LIST: Iopamidol-370 76% 500 ML 1 ML ONE
[2021-04-15 14:00] LABS: #Basophils 0.1 thou/uL (0.0-0.2); #Eosinphils 0.1 thou/uL (0.0-0.7); #Lymphocytes 1.7 thou/uL (1.20-3.40); #Monocytes 0.2 thou/uL (0.11-0.59); #Neutrophils 4.2 thou/uL (1.40-6.50); %Basophils 1.1 % (0.0-1.0); %Lymphocytes 27.3 % (21.0-51.0); %Monocytes 3.6 % (0.0-10.0); %Neutrophils 67.1 % (42.0-75.0); Hemoglobin 16.8 g/dL (12.0-16.0); Mean Corpuscular HGB CONC 34.1 g/dL (32.0-36.0); Mean Corpuscular Hemoglobin 31.6 pg (27.0-31.0); Mean Corpuscular Volume 92.7 fL (78.0-98.0); Mean Platelet Volume 7.3 fL (7.4-10.4); Platelet Count 370 thou/uL (130-400); Red Blood Cell (RBC) Count 5.31 mill/uL (4.20-5.40); White Blood Cell (WBC) Count 6.2 thou/uL (4.8-10.8)
[2021-04-15 14:03] LABS: Bacteria/HPF None Seen HPF (None Seen); Bilirubin Negative (Negative); Blood, Urine 1+ (Negative); Clarity Clear (Clear); Glucose, Urine (Dipstick) Normal (Negative); Ketone, Urine Negative (Negative); Leukocyte Negative Leu/uL (Negative); Nitrite Negative (Negative); Protein, Urine (Dipstick) 30 mg/dL (Neg-Trace); Specific Gravity, Urine 1.019 (1.002-1.036); Squamous Epithelial None Seen HPF (0-3); Urobilinogen Normal mg/dL (Less than 2); WBC/HPF 0-3 HPF (0-3); pH, Urine 6.5 (5.0-9.0)
[2021-04-15 14:18] LABS: ALT (SGPT) 24 U/L (8-55); AST (SGOT) 26 U/L (5-34); Albumin 4.5 g/dL (3.4-4.8); Alkaline Phosphatase 99 U/L (40-110); Anion Gap 14 mmol/L (10-20); BUN (Urea Nitrogen) 12 mg/dL (9.8-20.1); Bilirubin, Total 0.4 mg/dL (0.2-1.2); Calc. Creatinine Clearance 0 mL/min (70-130); Calcium 10.1 mg/dL (7.8-10.44); Carbon Dioxide 27 mmol/L (23-31); Chloride 99 mmol/L (98-107); Globulin 3.8 g/dL (2.4-3.5); Glucose 115 mg/dL (80-115); Lipase 13 U/L (8-78); Potassium 4.1 mmol/L (3.5-5.1); Protein, Total 8.3 g/dL (5.8-8.1); Sodium 136 mmol/L (136-145)
== END 2021-04-15 15:55 | disposition home or self-care (01) ==
LOC: ERS 10:57
DX: R10.84 Generalized abdominal pain (principal); R10.816 Epigastric abdominal tenderness; Z98.890 Other specified postprocedural states
CPT/HCPCS: 74177; 80053; 81003; 81015; 83690; 85025; 93005; Q9967

== ENCOUNTER 2022-03-13 07:50 | Outpatient (CLI) | payer BC | END 2022-03-13 07:51 | disposition home or self-care (01) | LOC: SCSMRI 07:50 | PROVIDERS: ATTEND Nurse Practitioner Family | DX: R22.42 Localized swelling, mass and lump, left lower limb (principal); S83.272A Complex tear of lateral meniscus, current injury, left knee, initial encounter; R93.7 Abnormal findings on diagnostic imaging of other parts of musculoskeletal system | CPT/HCPCS: 82565 ==